=== PATIENT | female | born 1975 | race Caucasian/White ===

== ENCOUNTER → 2018-09-18 | Emergency (ER) | payer BC ==
[2018-09-18 18:07] LABS: INR 1.13 (0.77-1.02)
[2018-09-18 18:16] LABS: Hematocrit 19 % (35-47); Hemoglobin 5.2 g/dl (12.0-16.0); Mean Corpuscular HGB Conc 27 g/dl (31-36); Mean Corpuscular Hemoglobin 14 pg (27-31); Mean Corpuscular Volume 53 fL (80-97); Red Blood Count 3.67 10^6/ul (4.00-5.40); Red Cell Distribution Width 23 % (10.5-15)
[2018-09-18 18:54] LABS: Platelet Count 188 10^3/ul (150-450)
[2018-09-18 18:58] LABS: ABS Basophils 0 10^3/ul (0-0.2); ABS Neutrophils 1.3 10^3/ul (1.5-7.7); ABS Neutrophils 2.3 10^3/ul (1.5-7.7); Monocytes % 5 % (0-7)
--- NOTE | 2018-09-18 20:02 | ED ---
Complex/Multi-Sys Presentation - HPI Summary HPI Summary: This patient is a 42 year old F presenting to [facility] accompanied by her mother, her father, and her with a chief complaint of low hemoglobin since abnl lab work this AM in the [facility] lab system (hgb 5.1, hct 19.1, WBC 3.1, platelets 136), which was taken s/p an eye doctor (Dr. Loni Rea OD) on 09/09/18 visit where they discovered hemorrhage in pt's optic fundi, per the pt. Pt states that this was a routine appointment with the eye doctor, to get her contact RX filled, and the doctor recommended that pt get bloodwork done, but did not recommend further evaluation and treatment of bleeding noted on the exam, and the eye doctor did RX pt's contacts. Pt has no visual symptoms and is wearing her contacts. LMP 08/20/18, and her menses have been heavier than usual recently. She denies emesis, melena, hematochezia, abnl stool, SOB, weakness, CP , dizziness, syncope, and current vaginal bleeding, meaning pt is not currently actively bleeding, nor symptomatic with this newly noted anemia. PMHx contacts for her vision, IBS but no hx colitis or bloody diarrhea SHx tubal ligation, plastic surgery on finger, face. Pt takes no Rx medications. FHx no GI bleeding or anemia. - History Of Current Complaint Chief Complaint: EDBleedingDisorder Time Seen by Provider: 09/18/18 17:46 Hx Obtained From: Patient, Medical Records - pt shows record of [facility] labs drawn this am on her patient portal, however no prior labs in [facility] or [facility] labs for baseline Onset/Duration: Gradual Onset, Still Present Timing: Constant Severity Currently: None Severity Initially: Mild Location: Negative Aggravating Factor(s): nothing known Alleviating Factor(s): none Associated Signs And Symptoms: Negative: Dizziness, Weakness, Syncope, SOB, Chest Pain, Vomiting, Melena, Fever, Other - current vaginal bleeding - Allergies/Home Medications Allergies/Adverse Reactions: Allergies Allergy/AdvReac Type Severity Reaction Status Date / Time No Known Allergies Allergy Verified 09/18/18 15:28 PMH/Surg Hx/FS Hx/Imm Hx Previously Healthy: No - heavy menstrual periods recently per pt,no eval or RX for this at this time Endocrine/Hematology History: Denies: Hx Sickle Cell Disease Cardiovascular History: Denies: Hx Myocardial Infarction Respiratory History: Denies: Hx Lung Cancer GI History: Reports: Hx Irritable Bowel Sensory History: Reports: Hx Contacts or Glasses, Hx Vision Problem - bilateral orbital hemorrhages Opthamlomology History: Reports: Hx Contacts or Glasses, Hx Vision Problem - bilateral orbital hemorrhages Neurological History: Denies: Hx Dementia Psychiatric History: Denies: Hx Schizophrenia - Surgical History Surgery Procedure, Year, and Place: tubal ligation, plastic surgery to finger per pt Infectious Disease History: No Infectious Disease History: Denies: Traveled Outside the [place] in Last 30 Days - Family History Known Family History: Negative: Blood Disorder - no fam hx anemia or GI bleeding - Social History Lives: With Family Alcohol Use: None Substance Use Type: Reports: None Smoking Status (MU): Never Smoked Tobacco Review of Systems Negative: Fever, Fatigue Negative: Chest Pain Negative: Shortness Of Breath, Cough Negative: Vomiting, Other - melena, hematochezia, hematemesis Negative: hematuria, other - vaginal bleeding Skin: Negative Negative: Weakness, Syncope Psychological: Normal All Other Systems Reviewed And Are Negative: Yes Physical Exam - Summary Physical Exam Summary: Appearance: Well-appearing, no pain distress, well-nourished, pale, not tachycardic or hypotensive Skin: Warm, dry, pale Head: Normal Head/Face inspection, atraumatic Eyes: Conjunctiva clear ENT: Normal inspection Neck: Supple, no nodes, no JVD Respiratory: Lungs clear, normal breath sounds, no respiratory distress Cardio: RRR, No murmur, pulses normal, brisk capillary refill Abdomen: Soft, nontender Bowel sounds: Present Musculoskeletal: Strength Intact/ROM intact, no calf tenderness, no edema. 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 Sent for Guaiac testing and negative Triage Information Reviewed: Yes Vital Signs On Initial Exam: Initial Vitals Temp Pulse Resp BP Pulse Ox 98.4 F 82 16 127/66 100 09/18/18 15:25 09/18/18 15:25 09/18/18 15:25 09/18/18 15:25 09/18/18 15:25 Vital Signs Reviewed: Yes Diagnostics - Vital Signs Vital Signs Temp Pulse Resp BP Pulse Ox 09/18/18 19:03 74 97/60 100 09/18/18 19:00 76 99 09/18/18 18:33 76 105/61 100 09/18/18 18:03 78 110/66 100 09/18/18 18:00 84 100 09/18/18 15:25 98.4 F 82 16 127/66 100 - Laboratory Lab Results: Lab Results 09/18/18 09/18/18 09/18/18 Range/Units 17:51 17:51 17:51 WBC 4.0 (3.5-10.8) 10^3/ul RBC 3.67 L (4.00-5.40) 10^6/ul Hgb 5.2 L* (12.0-16.0) g/dl Hct 19 L (35-47) % MCV 53 L (80-97) fL MCH 14 L (27-31) pg MCHC 27 L (31-36) g/dl RDW 23 H (10.5-15) % Plt Count 188 (150-450) 10^3/ul MPV Not Reportable Neut % (Auto) Not Reportable Lymph % (Auto) Not Reportable [place] % (Auto) Not Reportable Eos % (Auto) Not Reportable Baso % (Auto) Not Reportable Absolute Neuts (auto) 1.3 L (1.5-7.7) 10^3/ul Absolute Lymphs (auto) Not Reportable Absolute Monos (auto) Not Reportable Absolute Eos (auto) Not Reportable Absolute Basos (auto) Not Reportable Absolute Nucleated RBC Not Reportable Neutrophils % 57 (38-83) % Lymphocytes % 38 (25-47) % Monocytes % 5 (0-7) % Eosinophils % 0 (0-6) % Basophils % 0 (0-2) % Nucleated RBC % Not Reportable Abs Neuts (Manual) 2.3 (1.5-7.7) 10^3/ul Abs Lymphs (Manual) 1.5 (1.0-4.8) 10^3/ul Abs Monocytes (Manual) 0.2 (0-0.8) 10^3/ul Absolute Eos (Manual) 0 (0-0.6) 10^3/ul Abs Basophils (Manual) 0 (0-0.2) 10^3/ul Normal RBC Morphology Not Reportable Hypochromasia 3+ Microcytosis 3+ Elliptocytes 1+ Hem Pathologist Commnt Pending INR (Anticoag Therapy) 1.13 H (0.77-1.02) APTT 31.8 (26.0-36.3) seconds Sodium 138 (135-145) mmol/L Potassium 3.5 (3.5-5.0) mmol/L Chloride 108 (101-111) mmol/L Carbon Dioxide 25 (22-32) mmol/L Anion Gap 5 (2-11) mmol/L BUN 9 (6-24) mg/dL Creatinine 0.52 (0.51-0.95) mg/dL Est GFR ( Amer) 157.2 (>60) Est GFR (Non-Af Amer) 130.0 (>60) BUN/Creatinine Ratio 17.3 (8-20) Glucose 99 (70-100) mg/dL Calcium 8.9 (8.6-10.3) mg/dL Total Bilirubin 0.40 (0.2-1.0) mg/dL AST 14 (13-39) U/L ALT 8 (7-52) U/L Alkaline Phosphatase 51 (34-104) U/L Total Protein 7.1 (6.4-8.9) g/dL Albumin 4.6 (3.2-5.2) g/dL Globulin 2.5 (2-4) g/dL Albumin/Globulin Ratio 1.8 (1-3) Beta HCG, Quant < 0.60 mIU/mL Blood Type Antibody Screen 09/18/18 Range/Units 17:51 WBC (3.5-10.8) 10^3/ul RBC (4.00-5.40) 10^6/ul Hgb (12.0-16.0) g/dl Hct (35-47) % MCV (80-97) fL MCH (27-31) pg MCHC (31-36) g/dl RDW (10.5-15) % Plt Count (150-450) 10^3/ul MPV Neut % (Auto) Lymph % (Auto) [place] % (Auto) Eos % (Auto) Baso % (Auto) Absolute Neuts (auto) (1.5-7.7) 10^3/ul Absolute Lymphs (auto) Absolute Monos (auto) Absolute Eos (auto) Absolute Basos (auto) Absolute Nucleated RBC Neutrophils % (38-83) % Lymphocytes % (25-47) % Monocytes % (0-7) % Eosinophils % (0-6) % Basophils % (0-2) % Nucleated RBC % Abs Neuts (Manual) (1.5-7.7) 10^3/ul Abs Lymphs (Manual) (1.0-4.8) 10^3/ul Abs Monocytes (Manual) (0-0.8) 10^3/ul Absolute Eos (Manual) (0-0.6) 10^3/ul Abs Basophils (Manual) (0-0.2) 10^3/ul Normal RBC Morphology Hypochromasia Microcytosis Elliptocytes Hem Pathologist Commnt INR (Anticoag Therapy) (0.77-1.02) APTT (26.0-36.3) seconds Sodium (135-145) mmol/L Potassium (3.5-5.0) mmol/L Chloride (101-111) mmol/L Carbon Dioxide (22-32) mmol/L Anion Gap (2-11) mmol/L BUN (6-24) mg/dL Creatinine (0.51-0.95) mg/dL Est GFR ( Amer) (>60) Est GFR (Non-Af Amer) (>60) BUN/Creatinine Ratio (8-20) Glucose (70-100) mg/dL Calcium (8.6-10.3) mg/dL Total Bilirubin (0.2-1.0) mg/dL AST (13-39) U/L ALT (7-52) U/L Alkaline Phosphatase (34-104) U/L Total Protein (6.4-8.9) g/dL Albumin (3.2-5.2) g/dL Globulin (2-4) g/dL Albumin/Globulin Ratio (1-3) Beta HCG, Quant mIU/mL Blood Type O Positive Antibody Screen Negative Result Diagrams: 09/18/18 17:51 09/18/18 17:51 Lab Statement: Any lab studies that have been ordered have been reviewed, and results considered in the medical decision making process. Re-Evaluation - Re-Evaluation First Eval Re-Evaluation Time: 20:04 Change: Unchanged Comment: Advised her that were checking the iron, ferritin, and stool occult blood after discussion with Dr. Land and Dr. Berger. She may be discharged as she is asymptomatic. Second Eval Re-Evaluation Time: 20:56 Change: Unchanged Comment: Pulse 75, remains asymptomatic, discussed discharge and close follow up with labs in the am with [facility]. Pt's mother, father and all present for the discussion. Complex Multi-Symp Course/Dx Course Of Treatment: A 42-year-old F presents to the ED with a CC of anemia since a blood draw this am at [facility] and resultant Hgb 5.1. Labwork was recommended by an eye doctor who told pt she saw bleeding on her funcoscopic exam when she did a routine exam for contacts. Pt has no visual sxs and no further ophthalmologic eval or RX was recommended to pt, and the contacts were prescribed. Pt is asymptomatic with this low Hgb, and no definite cause of the anemia is identified, except possible heavy menses. Pt has no evidence of any bleeding while in the ED, or any evidence of clotting disorder. Pt denies emesis, melena, hematochezia, abnormal stool, SOB, weakness, CP, dizziness, syncope, and current vaginal bleeding. Pt notes recent heavy menses, LMP . She denies all symptoms. In the ED course, pt was given . Pt labs show low RBC, a low Hgb of 5.2, low Hct, low MCV, low MCH, low MCHC, high RDW, low abs neuts, high INR, high TIBC, high transferrin, low iron, low iron %, low ferritin. Of note, [facility] labs show only anemia, whereas [facility] labs done this am (several hours prior) show pancytopenia, with minimal decrease in wbc count and platelets. Pt's evaluation and treatment were discussed with both Dr. Berger and Dr. Land. Pt's iron studies are consistent with iron deficiency anemia. Since pt is asymptomatic, both Dr. Berger and Dr. Land feel that the remaining evaluation can be done as an outpatient with close follow up, and starting patient on prescription iron now. - Diagnoses Differential Diagnoses/HQI/PQRI: Other - GI bleeding, menorrhagia, blood dyscrasia, leukemia Provider Diagnoses: Iron (Fe) deficiency anemia - Physician Notifications Discussed Care Of Patient With: Perlita Berger Time Discussed With Above Provider: 19:54 Instructed by Provider To: Other - Recommends hematology consult. Discharge - Sign-Out/Discharge Documenting (check all that apply): Patient Departure - discharge - Discharge Plan Condition: Stable Disposition: HOME Prescriptions: Ferrous Sulfate [Iron] 325 mg PO TID #90 tablet Patient Education Materials: Iron Rich Diet (ED), Iron Deficiency Anemia (ED), Anemia (ED) Referrals: Jewels Stahl MD [Primary Care Provider] - 1 Day Additional Instructions: We have discussed your care with Dr. Berger, the hospitalist, and Dr. Land the traffic enumerator/oncologist. You stool is guaiac negative (no blood) and your iron levels are low. Dr. Land recommends starting oral iron and having definite follow up in the morning with Dr. Stahl to get repeat blood work and close follow up. Return to the ER if you have new or worsening symptoms. - Billing Disposition and Condition Condition: STABLE Disposition: Home - Attestation Statements Document Initiated by Benson: Yes Documenting Scribe: Luisito Lugo Provider For Whom Benson is Documenting (Include Credential): Dr. Duyen Turner MD Scribe Attestation: Luisito Hooper scribed for Dr. Duyen Turner MD on 09/23/18 at 1926. Scribe Documentation Reviewed: Yes Provider Attestation: The documentation as recorded by the Luisito castellanos accurately reflects the service I personally performed and the decisions made by me, Dr. Duyen Turner MD Consult Consult: 1956 Dr. Land: Check iron, make sure its iron deficiency, if she is truly asymptomatic she can be discharged and follow up tomorrow.
[2018-09-18 23:14] VITALS: BP 99/41
== END | disposition home or self-care (01) ==
LOC: ED 14:58
DX: D50.9 Iron deficiency anemia, unspecified (principal)
CPT/HCPCS: 36415; 80053; 82272; 82728; 83540; 83550; 84702; 85025; 85060; 85610; 85730; 86850; 86900; 86901; 99282